=== PATIENT | female | born 1975 | race Caucasian/White ===

== ENCOUNTER 2020-03-11 22:27 | Emergency (ER) | payer SELFPAY ==
--- NOTE | 2020-03-11 23:03 | ED General ---
General Chief Complaint: Cough/Cold/Flu Symptoms Stated Complaint: COUGH,WEAKNESS Nursing Triage Note: Pt complaining of a cough that started around . Pt states she has been taking over the counter medications for the cough but hasn't had any relief Nursing Sepsis Screen: No Definite Risk History of Present Illness Date Seen by Provider: Mar 11, 2020 Time Seen by Provider: 22:57 Initial Comments Patient presenting to emergency department for evaluation of a cough that has been going on for the past 6 weeks. Patient says the cough is mostly nonproductive and she denies any fevers chills chest pain shortness of breath or leg swelling. She said she has no medical problems and takes no medications on a regular basis. She has tried Mucinex [id number] with no relief. She does admit to smoking 1 pack of cigarettes per day. She says she is here because she starts a new job on Sunday and she is tired of coughing for this long. She is in no obvious distress with a normal oxygen saturation. Allergies and Home Medications Allergies Coded Allergies: No Known Drug Allergies (Unverified , 03/11/20) Patient Home Medication List Home Medication List Reviewed: Yes Review of Systems Review of Systems Constitutional: no symptoms reported EENTM: nose congestion Respiratory: cough Cardiovascular: no symptoms reported Gastrointestinal: no symptoms reported Musculoskeletal: no symptoms reported Skin: no symptoms reported Psychiatric/Neurological: No Symptoms Reported All Other Systems Reviewed Negative Unless Noted: Yes Past Vrfqdww-Kakwfr-Ujwfrq Hx Patient Social History Alcohol Use: Denies Use Recreational Drug Use: No Smoking Status: Current Everyday Smoker Type Used: Cigarettes 2nd Hand Smoke Exposure: No Recent Foreign Travel: No Contact w/Someone Who Travel: No Recent Infectious Disease Expo: No Recent Hopitalizations: No Physical Abuse: No Sexual Abuse: No Past Medical History Surgeries: Yes Gallbladder, Hysterectomy Respiratory: No Cardiac: No Neurological: No Genitourinary: No Gastrointestinal: No Musculoskeletal: No Endocrine: No HEENT: No Cancer: No Psychosocial: Yes ADD/ADHD, Anxiety, Depression Integumentary: No Blood Disorders: No Physical Exam Vital Signs Vital Signs - First Documented 03/11/20 22:35 Temp 37.1 Pulse 112 Resp 20 Pulse Ox 97 O2 Delivery Room Air Capillary Refill : Less Than 3 Seconds Height, Weight, BMI Height: '" Weight: lbs. oz. kg; BMI Method: General Appearance: No Apparent Distress, WD/WN HEENT: PERRL/EOMI Neck: Supple Respiratory: Lungs Clear, No Respiratory Distress Cardiovascular: Regular Rate, Rhythm Extremity: Normal Capillary Refill, No Pedal Edema Neurologic/Psychiatric: Alert, Oriented x3 Skin: Warm/Dry Progress/Results/Core Measures Suspected Sepsis Recent Fever Within 48 Hours: No Infection Criteria Present: None New/Unexplained Altered Menta: No Sepsis Screen: No Definite Risk SIRS Temperature: Pulse: 112 Respiratory Rate: 20 Blood Pressure / Mean: Results/Orders My Orders Orders - DAMIR YAP DO Chest 1 View Ap/Pa Only (03/11/20 22:41) Vital Signs/I&O 03/11/20 22:35 Temp 37.1 Pulse 112 Resp 20 B/P (MAP) Pulse Ox 97 O2 Delivery Room Air Capillary Refill : Less Than 3 Seconds Progress Note : Progress Note Patient with a nonspecific cough for 5 weeks that is most likely a upper respiratory tract infection and bronchitis worsened by her smoking. Chest x-ray shows some upper airway inflammation but no signs of pneumonia or pneumothorax congestive heart failure or pulmonary edema. She appears well with no signs of serious infection or other acute cardiopulmonary pathology. Given the length of her cough we'll treat her with Zithromax distant to supportive medications including Tessalon, nasal sprays and have her follow with PCP next week. Pa tient aware and agreeable with plan for discharge and verbalized understanding of the need for short-term follow-up and strict ED return precautions discussed clearish worsening pain shortness of breath with or general concerns. Departure Impression Primary Impression: Upper respiratory infection Qualified Codes: J06.9 - Acute upper respiratory infection, unspecified Disposition: 01 HOME, SELF-CARE Condition: Stable Departure-Patient Inst. Referrals: NO,LOCAL PHYSICIAN (PCP/Family) Primary Care Physician Patient Instructions: Cough, Adult (DC) Add. Discharge Instructions: DRINK PLENTY OF FLUIDS. AVOID SMOKING. FOLLOW WITH PCP IN 1 WEEK FOR RECHECK. All discharge instructions reviewed with patient and/or family. Voiced understanding. Scripts Azelastine HCl (Azelastine HCl) 137 Mcg/0.137 Ml [place].pump 137 MCG NS BID for 5 Days, ML Prov: DAMIR YAP DO 03/11/20 Azithromycin (Zithromax) 250 Mg Tablet 250 MG PO UD, #6 TAB TAKE 2 TABLETS TODAY, THEN TAKE 1 TABLET DAILY FOR 4 MORE DAYS Prov: DAMIR YAP DO 03/11/20 Benzonatate (TESSALON PERLES) 100 Mg Capsule 100 MG PO TID PRN for COUGH, #15 CAP Prov: DAMIR YAP DO 03/11/20 Albuterol Sulfate (PROAIR HFA) 1 Puff Puff 2 PUFF IH Q4H, #1 INHALER 1 PUFF = 90 MCG Prov: DAMIR YAP DO 03/11/20 DAMIR YAP DO Mar 11, 2020 23:02
[2020-03-11] MEDS ORDERED: BENZ100C18 PO (23:05)
[2020-03-11] MEDS ORDERED: RT-ALBUINH IH (23:05)
[2020-03-11] MEDS ORDERED: AZIT250T PO (23:05)
[2020-03-11] MEDS ORDERED: AZEL137S11 NS (23:05)
[2020-03-11] MEDS ORDERED: BENZONATATE 100 MG (TESSALON) CAPSULE PO SCH (23:15)
[2020-03-11] MEDS ORDERED: HYDROcodone/APAP 5 MG/325 MG (LORTAB) TAB PO ONE (23:15)
[2020-03-11 23:20] VITALS: BP 105/81
--- NOTE | 2020-03-12 07:52 | Diagnostic Imaging Report ---
Indication: Cough. Time of exam: 10:46 PM No prior studies are available for comparison. The heart size is normal. The pulmonary vascularity is unremarkable. The lungs are clear. No infiltrate, effusion or pneumothorax is detected. Impression: No acute cardiopulmonary process is detected. Dictated by: Dictated on workstation # [id number]
== END 2020-03-11 23:23 | disposition home or self-care (01) ==
LOC: ER FS 22:29
DX: J06.9 Acute upper respiratory infection, unspecified (principal); F17.210 Nicotine dependence, cigarettes, uncomplicated
CPT/HCPCS: 71045